=== PATIENT | male | born 1960 | race Asian ===

== ENCOUNTER 2021-04-03 11:48 | Emergency (ER) | payer MEDICAID ==
[~2021-04-03] VITALS: Ht 175.3 cm; Wt 86.2 kg
[2021-04-03] MEDS ORDERED: BP MED (11:53)
[2021-04-03] MEDS ORDERED: METFORMIN (11:53)
[2021-04-03] MEDS ORDERED: METF-440 PO ×2 (12:05→13:04)
[2021-04-03 12:12] LABS: MEAN CORPUSCULAR HEMOGLOBIN 30.7 uug (23.8-33.4); MEAN CORPUSCULAR VOLUME 91.6 fL (73.0-96.2); PLATELET COUNT (AUTO) 197 K/uL (152-348)
[2021-04-03 12:28] LABS: CREATININE 1.2 mg/dL (0.6-1.3)
[2021-04-03 12:29] LABS: *BILIRUBIN,URIN NEGATIVE (NEGATIVE); *CLARITY,URINE CLEAR (CLEAR); *COLOR,URINE LIGHT YELLOW (YELLOW); *KETONES,URINE NEGATIVE (NEGATIVE); *UROBILINOGEN,URINE 0.2 E.U./dl (NORMAL); LEUKOCYTE ESTERASE ,URINE NEGATIVE (NEGATIVE); NITRITE, URINE NEGATIVE (NEGATIVE); UGLUCOSE 2+ (NEGATIVE)
[2021-04-03] MEDS: IV NORMAL SALINE 1000 ML BAG IV ONE (12:29)
[2021-04-03 12:30] LABS: *BLOOD, URINE TRACE (NEGATIVE)
[2021-04-03 12:42] LABS: BILIRUBIN,DIRECT 0.1 mg/dL (0.0-0.2); BILIRUBIN,TOTAL 0.5 mg/dL (0.2-1.0); TOTAL PROTEIN, SERUM 7.2 g/dL (6.4-8.2)
[2021-04-03 12:52] LABS: THYROID STIMULATING HORMONE 0.701 mIU/mL (0.358-3.740)
[2021-04-03 13:07] LABS: BACTERIA,URINE NONE SEEN /HPF (NONE SEEN); MUCUS,URINE FEW /LPF (0-FEW); RBC,URINE 0-3 /HPF (0-3); SQUAMOUS EPITHELIAL CELL,UR FEW /HPF (NONE SEEN); WBC,URINE 0-3 /HPF (0-3)
[2021-04-03] MEDS ORDERED: LOVA10TA PO (14:08)
--- NOTE | 2021-04-03 14:08 | NUR ---
Removed IV intact, site okay, bandaged. Gave pt RX and d/c instructions, pt verbalized understanding.
[2021-04-03 14:16] VITALS: BP 139/77
== END 2021-04-03 14:19 | disposition home or self-care (01) ==
LOC: ER 11:48
DX: E11.65 Type 2 diabetes mellitus with hyperglycemia (principal); Z79.84 Long term (current) use of oral hypoglycemic drugs; R42 Dizziness and giddiness; I48.92 Unspecified atrial flutter; I10 Essential (primary) hypertension; E78.5 Hyperlipidemia, unspecified; Z88.6 Allergy status to analgesic agent
CPT/HCPCS: 36415; 70030-TC; 71045; 84443; 85025; 93005; A4663; J7030